=== PATIENT | female | born 1990 | race Caucasian/White ===

== ENCOUNTER 2021-06-14 20:37 | Emergency (ER) | payer OTHER ==
[2021-06-14 22:16] LABS: INFLUENZA A NAA NEGATIVE (NEGATIVE)
[2021-06-14 22:19] LABS: CORONAVIRUS 2019 SARS-COV-2 POSITIVE (NEGATIVE)
[2021-06-15] MEDS ORDERED: ONDANSETRON ODT4 MG PO (02:12)
[2021-06-15] MEDS ORDERED: NAPROXEN500 MG PO (02:12)
[2021-06-15] MEDS ORDERED: TESSALON PERLE100 MG PO (02:12)
== END 2021-06-15 02:16 | disposition home or self-care (01) ==
LOC: FER 20:37
PROVIDERS: Internal Medicine
DX: U07.1 COVID-19 (principal); F17.210 Nicotine dependence, cigarettes, uncomplicated
CPT/HCPCS: 99284; U0002